=== PATIENT | male | born 1945 | race Caucasian/White ===

== ENCOUNTER → 2016-10-24 | Day surgery (SDC) | payer MEDICARE ==
[~2016-10-24] MED LIST: ASPIRIN CHEWABL81 MG GT; BACITRACIN15 GM TOP; DIGITEK125 MCG GT; LIQUACEL LIQUID30 ML GT; LOPRESSOR25 MG GT; PREVACID30 M1 GT; REGLAN10 MG/10 M GT; ROBITUSSIN100 MG/5 M GT; SYNTHROID75 MCG GT; [UNRECOGNIZED DRUG - OTHER] GT
[2016-10-24 07:21] LABS: CREATININE 0.9 mg/dL (0.7-1.2); POTASSIUM 5.3 mmol/L (3.5-5.1)
== END | disposition home or self-care (01) ==
LOC: FAS 06:38
PROVIDERS: Anesthesiology
DX: D12.6 Benign neoplasm of colon, unspecified (principal); K21.9 Gastro-esophageal reflux disease without esophagitis; I10 Essential (primary) hypertension; M19.90 Unspecified osteoarthritis, unspecified site; J30.9 Allergic rhinitis, unspecified; Z90.49 Acquired absence of other specified parts of digestive tract; Z87.891 Personal history of nicotine dependence; Z86.010 Personal history of colon polyps; Z79.82 Long term (current) use of aspirin; Z79.899 Other long term (current) drug therapy; Z98.890 Other specified postprocedural states
CPT/HCPCS: 36415; 80048; 88305; J2704

== ENCOUNTER → 2016-11-06 | Day surgery (SDC) | payer MEDICARE | END | disposition home or self-care (01) | LOC: FAS 06:14 | DX: C18.9 Malignant neoplasm of colon, unspecified (principal); K21.9 Gastro-esophageal reflux disease without esophagitis; I10 Essential (primary) hypertension; J30.9 Allergic rhinitis, unspecified; M19.90 Unspecified osteoarthritis, unspecified site; Z86.010 Personal history of colon polyps; Z87.891 Personal history of nicotine dependence; Z90.49 Acquired absence of other specified parts of digestive tract; Z79.82 Long term (current) use of aspirin; Z79.899 Other long term (current) drug therapy; Z98.890 Other specified postprocedural states | CPT/HCPCS: 88305; J2704 ==

== ENCOUNTER 2016-11-23 10:15 | Inpatient (IN) | payer MEDICARE, MEDICAID ==
[2016-11-22 10:28] LABS: HCT 50.7 % (42.0-52.0); MCH 27.4 pg (25.0-31.0); MCHC 33.5 g/dL (32.0-36.0); MCV 81.6 fL (78.0-100.0); MPV 9.4 fL (6.0-9.5); RBC 6.21 M/uL (4.70-6.00); RDW 14.4 % (11.5-14.0); WBC 5.7 K/uL (4.0-10.5)
[2016-11-22 10:44] LABS: ALBUMIN 4.7 g/dL (3.4-4.8); BILIRUBIN - TOTAL 1.2 mg/dL (0.1-1.0); CREATININE 0.7 mg/dL (0.7-1.2); GLOBULIN (CALCULATION) 2.9 g/dL (2.2-4.2); POTASSIUM 3.8 mmol/L (3.5-5.1); TOTAL PROTEIN 7.6 g/dL (6.4-8.3)
[~2016-11-23] VITALS: Ht 170 cm; Wt 80.3 kg
[2016-11-23 14:25] LABS: BILIRUBIN NEGATIVE (NEGATIVE); BLOOD TRACE-INTACT Ery/uL (NEGATIVE); CLARITY CLEAR (CLEAR); COLOR YELLOW (YELLOW); GLUCOSE (U) NORMAL (NORMAL); KETONE (U) NEGATIVE (NEGATIVE); LEUKOCYTES NEGATIVE Leu/uL (NEGATIVE); NITRITE NEGATIVE (NEGATIVE); PROTEIN NEGATIVE (NEGATIVE); UROBILINOGEN 0.2 mg/dL (0.2-1.0)
[2016-11-24 06:00] LABS: HCT 39.7 % (42.0-52.0); HGB 13.1 g/dl (13.2-18.0); MCH 27.4 pg (25.0-31.0); MCV 83.1 fL (78.0-100.0); MPV 9.9 fL (6.0-9.5); RBC 4.78 M/uL (4.70-6.00); RDW 14.3 % (11.5-14.0)
[2016-11-24 06:02] LABS: WBC 16.5 K/uL (4.0-10.5)
[2016-11-24 06:36] LABS: CREATININE 1.5 mg/dL (0.7-1.2); POTASSIUM 4.4 mmol/L (3.5-5.1)
[2016-11-24 15:33] LABS: CREATININE 1.1 mg/dL (0.7-1.2); MAGNESIUM 1.9 mg/dL (1.40-2.10); POTASSIUM 4.4 mmol/L (3.5-5.1)
[2016-11-25 04:51] LABS: CREATININE 2.3 mg/dL (0.7-1.2); POTASSIUM 4.9 mmol/L (3.5-5.1)
[2016-11-25 16:13] LABS: BASOPHIL 0 % (0-2); EOSINOPHIL 0 % (0-7); HCT 25.1 % (42.0-52.0); HGB 8.2 g/dl (13.2-18.0); LYMPHOCYTE 6.7 % (15-48); MCHC 32.7 g/dL (32.0-36.0); MCV 85.7 fL (78.0-100.0); MONOCYTE 15.4 % (0-12); MPV 9.6 fL (6.0-9.5); NEUTROPHIL 77.9 % (41-80); PLT 281 K/uL (150-400); RBC 2.93 M/uL (4.70-6.00); RDW 13.9 % (11.5-14.0); WBC 12.4 K/uL (4.0-10.5)
[2016-11-25 16:32] LABS: CREATININE 1.5 mg/dL (0.7-1.2); PHOSPHORUS 3.3 mg/dL (2.7-4.5); POTASSIUM 4.3 mmol/L (3.5-5.1)
[2016-11-25 18:39] LABS: URINE CREATININE 190.7 mg/dL (40-278)
[2016-11-25 18:46] LABS: RETICULOCYTE COUNT 2.7 % (1.0-2.0)
[2016-11-26 01:46] LABS: BILIRUBIN NEGATIVE (NEGATIVE); BLOOD 1+ Ery/uL (NEGATIVE); CLARITY CLEAR (CLEAR); COLOR YELLOW (YELLOW); GLUCOSE (U) NORMAL (NORMAL); KETONE (U) NEGATIVE (NEGATIVE); LEUKOCYTES NEGATIVE Leu/uL (NEGATIVE); NITRITE NEGATIVE (NEGATIVE); PROTEIN TRACE (LOW) mg/dL (NEGATIVE); UROBILINOGEN 0.2 mg/dL (0.2-1.0); pH 5.5 (5.0-9.0)
[2016-11-26 01:50] LABS: URINARY RBC RARE
[2016-11-26 04:41] LABS: BASOPHIL 0 % (0-2); EOSINOPHIL 0.2 % (0-7); LYMPHOCYTE 11.5 % (15-48); MCH 28.1 pg (25.0-31.0); MCHC 32.6 g/dL (32.0-36.0); MCV 86.1 fL (78.0-100.0); MONOCYTE 19.3 % (0-12); MPV 9.9 fL (6.0-9.5); PLT 218 K/uL (150-400); RBC 2.67 M/uL (4.70-6.00); RDW 13.9 % (11.5-14.0); WBC 6.4 K/uL (4.0-10.5)
[2016-11-26 04:45] LABS: HGB 7.5 g/dl (13.2-18.0)
[2016-11-26 04:59] LABS: IRON 18 ug/dL (44-196); IRON % SATURATION 7 %SAT (20-50); TIBC (TOTAL IRON + UIBC) 267 U/L (228-428); UIBC 249 ug/dL (112-346)
[2016-11-26 05:00] LABS: POTASSIUM 4.5 mmol/L (3.5-5.1)
[2016-11-26 05:19] LABS: FOLIC ACID (SERUM) 7.3 ng/mL (5.6-45.8)
[2016-11-26 09:14] LABS: BASOPHIL NO PRINT 0.1 % (0-2); EOSINOPHIL NO PRINT 0 % (0-7); HCT 25.7 % (42.0-52.0); HGB 8.2 g/dL (13.2-18.0); LYMPHOCYTE NO PRINT 12.9 % (15-48); MCH NO PRINT 27.8 pg (25.0-31.0); MCHC NO PRINT 31.9 g/dL (32.0-36.0); MCV NO PRINT 87.1 fL (78.0-100.0); MONOCYTE NO PRINT 23.8 % (0-12); MPV NO PRINT 9.9 fL (6.0-9.5); NEUTROPHIL NO PRINT 63.2 % (41-80); PLT NO PRINT 218 K/uL (150-400); RBC NO PRINT 2.95 M/uL (4.70-6.00); RDW NO PRINT 14.1 % (11.5-14.0); WBC NO PRINT 6.7 K/uL (4.0-10.5)
[2016-11-27 04:52] LABS: HCT 24.5 % (42.0-52.0); HGB 7.9 g/dl (13.2-18.0); MCH 27.8 pg (25.0-31.0); MCHC 32.2 g/dL (32.0-36.0); MCV 86.3 fL (78.0-100.0); MPV 9.7 fL (6.0-9.5); RBC 2.84 M/uL (4.70-6.00); WBC 5.2 K/uL (4.0-10.5)
[2016-11-27 05:13] LABS: CREATININE 0.8 mg/dL (0.7-1.2); POTASSIUM 4.3 mmol/L (3.5-5.1)
[2016-11-28 05:09] LABS: CREATININE 0.7 mg/dL (0.7-1.2)
[2016-11-28 05:40] LABS: HGB 8.3 g/dl (13.2-18.0); MCH 27.8 pg (25.0-31.0); MCHC 31.9 g/dL (32.0-36.0); MPV 9.6 fL (6.0-9.5); RBC 2.99 M/uL (4.70-6.00); RDW 14.1 % (11.5-14.0); WBC 7.6 K/uL (4.0-10.5)
[2016-11-30 04:57] LABS: HCT 27.4 % (42.0-52.0); HGB 8.8 g/dl (13.2-18.0); MCH 27.9 pg (25.0-31.0); MCHC 32.1 g/dL (32.0-36.0); MPV 9.6 fL (6.0-9.5); RBC 3.15 M/uL (4.70-6.00); RDW 15.4 % (11.5-14.0); WBC 10.3 K/uL (4.0-10.5)
[2016-11-30 05:18] LABS: ALBUMIN 2.8 g/dL (3.4-4.8); BILIRUBIN - TOTAL 2.1 mg/dL (0.1-1.0); CREATININE 0.8 mg/dL (0.7-1.2); GLOBULIN (CALCULATION) 2.4 g/dL (2.2-4.2); TOTAL PROTEIN 5.2 g/dL (6.4-8.3)
[2016-12-01 05:01] LABS: HCT 29.1 % (42.0-52.0); HGB 9.3 g/dl (13.2-18.0); MCH 27.5 pg (25.0-31.0); MCV 86.1 fL (78.0-100.0); MPV 9.5 fL (6.0-9.5); RBC 3.38 M/uL (4.70-6.00); RDW 15.9 % (11.5-14.0); WBC 14.4 K/uL (4.0-10.5)
[2016-12-01 05:11] LABS: ALBUMIN 3.1 g/dL (3.4-4.8); BILIRUBIN - DIRECT 0.9 mg/dL (0.0-0.2); BILIRUBIN - TOTAL 1.9 mg/dL (0.1-1.0); CREATININE 0.9 mg/dL (0.7-1.2); GLOBULIN (CALCULATION) 1.8 g/dL (2.2-4.2); POTASSIUM 4.2 mmol/L (3.5-5.1); TOTAL PROTEIN 4.9 g/dL (6.4-8.3)
--- NOTE | 2016-12-01 06:44 | NUR ---
0547 [facility] CALLED FOR INCREASED HEART RATE, O2 STAT DROPPED TO 83%. PATIENT PUT ON 2L/NC TO BRING O2 STATS ABOVE 91%. MD NOTIFIED AT 0554, HOUSE CALLED, STAT EKG ORDERED, MD ORDERED TO TRANSFER PATIENT TO ICU, CARDIZEM 5MG IV PUSH NOW, CBC, BMP AND COMP, CARDIAC MARKERS, PORTABLE CHEST X-RAY. REPORT CALLED TO SABINA.
[2016-12-01 06:55] LABS: HCT 32.4 % (42.0-52.0); HGB 10.1 g/dl (13.2-18.0); MCH 26.9 pg (25.0-31.0); MCHC 31.2 g/dL (32.0-36.0); MCV 86.2 fL (78.0-100.0); MPV 9.7 fL (6.0-9.5); RBC 3.76 M/uL (4.70-6.00); RDW 16.3 % (11.5-14.0); WBC 9.4 K/uL (4.0-10.5)
[2016-12-01 07:20] LABS: CKMB 2.92 ng/mL (0.97-4.94); MYOGLOBIN 114 ng/mL (26-65); TROPONIN T < 0.010 ng/mL
[2016-12-01 07:21] LABS: BILIRUBIN - TOTAL 2.1 mg/dL (0.1-1.0); CREATININE 0.9 mg/dL (0.7-1.2); GLOBULIN (CALCULATION) 2.7 g/dL (2.2-4.2); MAGNESIUM 2.01 mg/dL (1.40-2.10); POTASSIUM 3.4 mmol/L (3.5-5.1); TOTAL PROTEIN 5.7 g/dL (6.4-8.3)
[2016-12-01 07:24] LABS: PRO-BNP 768 pg/mL (0-125)
--- NOTE | 2016-12-01 07:44 | NUR ---
PT TRANSFERRED TO ICU BED AFTER [facility] ON [facility] WAS CALLED. REPORT RECIEVED PT WAS BROUGHT OVER. PT POST SIGMOID COLONECTOMY AND SUDDENLY BECAME TACHYCARDIC IN THE 140'S AND DESATED TO 83% PER REPORT. PT PLACED ON 2L NC. UPON ARRIVAL PT NOTED TO HAVE NO PAIN/SWEATING. ABDOMIN DISTENDED/FIRM/BRUISED. MD CALLED AND ORDERS RECIEVED ON CHART. PT O2 TITRATED TO 4L TO IMPROVE O2 SATS.
[2016-12-01 13:37] LABS: BILIRUBIN 1+ mg/dL (NEGATIVE); BLOOD NEGATIVE Ery/uL (NEGATIVE); CLARITY CLEAR (CLEAR); COLOR YELLOW (YELLOW); GLUCOSE (U) NORMAL (NORMAL); KETONE (U) 1+ (SMALL) mg/dL (NEGATIVE); LEUKOCYTES NEGATIVE Leu/uL (NEGATIVE); NITRITE NEGATIVE (NEGATIVE); PROTEIN TRACE (LOW) mg/dL (NEGATIVE)
[2016-12-01 18:40] LABS: HCT 28.9 % (42.0-52.0); HGB 9.2 g/dl (13.2-18.0); MCH 27.3 pg (25.0-31.0); MCHC 31.8 g/dL (32.0-36.0); MCV 85.8 fL (78.0-100.0); MPV 9.7 fL (6.0-9.5); RBC 3.37 M/uL (4.70-6.00); WBC 12.1 K/uL (4.0-10.5)
[2016-12-01 18:51] LABS: ALBUMIN 2.2 g/dL (3.4-4.8); BILIRUBIN - DIRECT 1.1 mg/dL (0.0-0.2); BILIRUBIN - TOTAL 1.7 mg/dL (0.1-1.0); CREATININE 1.1 mg/dL (0.7-1.2); POTASSIUM 3.7 mmol/L (3.5-5.1); TOTAL PROTEIN 4.2 g/dL (6.4-8.3)
[2016-12-02 08:02] LABS: HCT 29.4 % (42.0-52.0); HGB 9.2 g/dl (13.2-18.0); MCHC 31.3 g/dL (32.0-36.0); MCV 86.2 fL (78.0-100.0); MPV 9.8 fL (6.0-9.5); RBC 3.41 M/uL (4.70-6.00); RDW 16.3 % (11.5-14.0); WBC 19.3 K/uL (4.0-10.5)
[2016-12-02 08:15] LABS: ALBUMIN 2.1 g/dL (3.4-4.8); BILIRUBIN - TOTAL 1.2 mg/dL (0.1-1.0); CREATININE 1.3 mg/dL (0.7-1.2); GLOBULIN (CALCULATION) 1.9 g/dL (2.2-4.2); POTASSIUM 4.1 mmol/L (3.5-5.1)
[2016-12-03 05:52] LABS: HCT 23.4 % (42.0-52.0); HGB 7.6 g/dl (13.2-18.0); MCHC 32.5 g/dL (32.0-36.0); MPV 9.7 fL (6.0-9.5); RBC 2.82 M/uL (4.70-6.00); RDW 15.7 % (11.5-14.0); WBC 13.7 K/uL (4.0-10.5)
[2016-12-03 06:07] LABS: MAGNESIUM 2.1 mg/dL (1.40-2.10); PHOSPHORUS 1.7 mg/dL (2.7-4.5); POTASSIUM 3.4 mmol/L (3.5-5.1)
[2016-12-03 12:05] LABS: BASOPHIL NO PRINT 0.1 % (0-2); EOSINOPHIL NO PRINT 0.3 % (0-7); HCT 24.5 % (42.0-52.0); LYMPHOCYTE NO PRINT 4.9 % (15-48); MCH NO PRINT 27.5 pg (25.0-31.0); MCHC NO PRINT 32.7 g/dL (32.0-36.0); MCV NO PRINT 84.2 fL (78.0-100.0); MONOCYTE NO PRINT 4.7 % (0-12); MPV NO PRINT 9.3 fL (6.0-9.5); PLT NO PRINT 228 K/uL (150-400); RBC NO PRINT 2.91 M/uL (4.70-6.00); RDW NO PRINT 15.8 % (11.5-14.0); WBC NO PRINT 7.7 K/uL (4.0-10.5)
[2016-12-04 04:55] LABS: HCT 27.1 % (42.0-52.0); HGB 8.9 g/dl (13.2-18.0); MCH 27.4 pg (25.0-31.0); MCHC 32.8 g/dL (32.0-36.0); MCV 83.4 fL (78.0-100.0); MPV 9.7 fL (6.0-9.5); RBC 3.25 M/uL (4.70-6.00); RDW 15.7 % (11.5-14.0); WBC 8.6 K/uL (4.0-10.5)
[2016-12-04 05:17] LABS: ALBUMIN 1.8 g/dL (3.4-4.8); BILIRUBIN - DIRECT 0.4 mg/dL (0.0-0.2); CREATININE 0.8 mg/dL (0.7-1.2); GLOBULIN (CALCULATION) 2.3 g/dL (2.2-4.2); MAGNESIUM 2.13 mg/dL (1.40-2.10); PHOSPHORUS 2.2 mg/dL (2.7-4.5); POTASSIUM 3.8 mmol/L (3.5-5.1); TOTAL PROTEIN 4.1 g/dL (6.4-8.3)
[2016-12-05 05:03] LABS: BASOPHIL 0.3 % (0-2); EOSINOPHIL 0.5 % (0-7); HCT 28.5 % (42.0-52.0); HGB 9.6 g/dl (13.2-18.0); LYMPHOCYTE 8.6 % (15-48); MCH 27.9 pg (25.0-31.0); MCHC 33.7 g/dL (32.0-36.0); MCV 82.8 fL (78.0-100.0); MONOCYTE 7.7 % (0-12); MPV 10.4 fL (6.0-9.5); NEUTROPHIL 82.9 % (41-80); PLT 212 K/uL (150-400); RBC 3.44 M/uL (4.70-6.00); RDW 15.8 % (11.5-14.0); WBC 6.6 K/uL (4.0-10.5)
[2016-12-05 05:20] LABS: ALBUMIN 1.8 g/dL (3.4-4.8); BILIRUBIN - TOTAL 0.7 mg/dL (0.1-1.0); CREATININE 0.7 mg/dL (0.7-1.2); GLOBULIN (CALCULATION) 2.3 g/dL (2.2-4.2); MAGNESIUM 2.15 mg/dL (1.40-2.10); PHOSPHORUS 2.3 mg/dL (2.7-4.5); POTASSIUM 3.3 mmol/L (3.5-5.1); TOTAL PROTEIN 4.1 g/dL (6.4-8.3)
[2016-12-05 21:08] LABS: CREATININE 0.8 mg/dL (0.7-1.2); POTASSIUM 3.3 mmol/L (3.5-5.1)
[2016-12-06 03:48] LABS: BASOPHIL 0.5 % (0-2); EOSINOPHIL 0.7 % (0-7); HCT 33.4 % (42.0-52.0); HGB 11.3 g/dl (13.2-18.0); LYMPHOCYTE 6.6 % (15-48); MCHC 33.8 g/dL (32.0-36.0); MCV 82.9 fL (78.0-100.0); MONOCYTE 8.2 % (0-12); MPV 10.9 fL (6.0-9.5); PLT 242 K/uL (150-400); RBC 4.03 M/uL (4.70-6.00); RDW 15.4 % (11.5-14.0); WBC 7.4 K/uL (4.0-10.5)
[2016-12-06 03:58] LABS: INR 1.46 (0.9-1.2); PROTHROMBIN TIME 17.2 SECONDS (11.7-14.0); PTT 30.8 SECONDS (23.2-31.4)
[2016-12-06 04:10] LABS: BILIRUBIN - TOTAL 0.8 mg/dL (0.1-1.0); CREATININE 0.8 mg/dL (0.7-1.2); GLOBULIN (CALCULATION) 2.4 g/dL (2.2-4.2); MAGNESIUM 1.89 mg/dL (1.40-2.10); PHOSPHORUS 3.9 mg/dL (2.7-4.5); POTASSIUM 3.6 mmol/L (3.5-5.1); TOTAL PROTEIN 4.4 g/dL (6.4-8.3)
[2016-12-06 10:29] LABS: FT4 (FREE T4) 0.796 ng/dL (0.93-1.70); TSH (THYROID STIM HORMONE) 6.59 uIU/mL (0.270-4.200)
[2016-12-06 10:37] LABS: BILIRUBIN NEGATIVE (NEGATIVE); BLOOD TRACE-INTACT Ery/uL (NEGATIVE); CLARITY CLEAR (CLEAR); COLOR YELLOW (YELLOW); GLUCOSE (U) TRACE mg/dL (NORMAL); KETONE (U) NEGATIVE (NEGATIVE); LEUKOCYTES NEGATIVE Leu/uL (NEGATIVE); NITRITE NEGATIVE (NEGATIVE); PROTEIN NEGATIVE (NEGATIVE); UROBILINOGEN 0.2 mg/dL (0.2-1.0); pH 5.5 (5.0-9.0)
[2016-12-06 10:44] LABS: URINARY RBC RARE; URINARY WBC RARE
[2016-12-06 10:45] LABS: SQUAMOUS EPITHELIAL CELLS RARE
[2016-12-06 11:01] LABS: D-DIMER 8.48 ug/mLFEU (0.00-0.41)
[2016-12-06 17:10] LABS: CREATININE 0.8 mg/dL (0.7-1.2); POTASSIUM 3.5 mmol/L (3.5-5.1)
[2016-12-07 04:10] LABS: BASOPHIL 0.3 % (0-2); EOSINOPHIL 0.7 % (0-7); HCT 36.5 % (42.0-52.0); HGB 12.3 g/dl (13.2-18.0); LYMPHOCYTE 6.3 % (15-48); MCH 28.3 pg (25.0-31.0); MCHC 33.7 g/dL (32.0-36.0); MCV 84.1 fL (78.0-100.0); MONOCYTE 6.1 % (0-12); MPV 10.8 fL (6.0-9.5); NEUTROPHIL 86.6 % (41-80); PLT 333 K/uL (150-400); RBC 4.34 M/uL (4.70-6.00); RDW 16.1 % (11.5-14.0)
[2016-12-07 04:18] LABS: INR 1.59 (0.9-1.2); PROTHROMBIN TIME 18.4 SECONDS (11.7-14.0); PTT 33.4 SECONDS (23.2-31.4)
[2016-12-07 04:34] LABS: ALBUMIN 1.9 g/dL (3.4-4.8); CREATININE 0.8 mg/dL (0.7-1.2); MAGNESIUM 1.67 mg/dL (1.40-2.10); PHOSPHORUS 3.2 mg/dL (2.7-4.5); POTASSIUM 3.5 mmol/L (3.5-5.1); TOTAL PROTEIN 4.9 g/dL (6.4-8.3)
[2016-12-07 18:05] LABS: CREATININE 0.7 mg/dL (0.7-1.2); POTASSIUM 4.1 mmol/L (3.5-5.1)
[2016-12-08 04:39] LABS: INR 1.54 (0.9-1.2); PTT 34.3 SECONDS (23.2-31.4)
[2016-12-08 04:50] LABS: BILIRUBIN - TOTAL 1.3 mg/dL (0.1-1.0); CREATININE 0.8 mg/dL (0.7-1.2); GLOBULIN (CALCULATION) 3.2 g/dL (2.2-4.2); MAGNESIUM 1.86 mg/dL (1.40-2.10); PHOSPHORUS 2.7 mg/dL (2.7-4.5); TOTAL PROTEIN 5.2 g/dL (6.4-8.3)
[2016-12-08 08:07] LABS: BASOPHIL 0.2 % (0-2); EOSINOPHIL 0.3 % (0-7); HCT 35.4 % (42.0-52.0); HGB 11.5 g/dl (13.2-18.0); LYMPHOCYTE 4.7 % (15-48); MCHC 32.5 g/dL (32.0-36.0); MCV 86.1 fL (78.0-100.0); MONOCYTE 6.6 % (0-12); MPV 11.1 fL (6.0-9.5); NEUTROPHIL 88.2 % (41-80); PLT 377 K/uL (150-400); RBC 4.11 M/uL (4.70-6.00); RDW 16.1 % (11.5-14.0); WBC 11.6 K/uL (4.0-10.5)
[2016-12-08 19:35] LABS: CREATININE 0.8 mg/dL (0.7-1.2); POTASSIUM 3.8 mmol/L (3.5-5.1)
[2016-12-09 04:24] LABS: BASOPHIL 0.2 % (0-2); EOSINOPHIL 0.7 % (0-7); HCT 34.5 % (42.0-52.0); HGB 11.1 g/dl (13.2-18.0); LYMPHOCYTE 5.7 % (15-48); MCH 27.8 pg (25.0-31.0); MCHC 32.2 g/dL (32.0-36.0); MCV 86.5 fL (78.0-100.0); MONOCYTE 6.6 % (0-12); MPV 10.9 fL (6.0-9.5); NEUTROPHIL 86.8 % (41-80); PLT 432 K/uL (150-400); RBC 3.99 M/uL (4.70-6.00); RDW 16.2 % (11.5-14.0); WBC 11.2 K/uL (4.0-10.5)
[2016-12-09 04:38] LABS: BILIRUBIN - TOTAL 1.4 mg/dL (0.1-1.0); CREATININE 0.8 mg/dL (0.7-1.2); GLOBULIN (CALCULATION) 3.1 g/dL (2.2-4.2); MAGNESIUM 1.79 mg/dL (1.40-2.10); PHOSPHORUS 2.6 mg/dL (2.7-4.5); POTASSIUM 3.6 mmol/L (3.5-5.1); TOTAL PROTEIN 5.1 g/dL (6.4-8.3)
[2016-12-10 04:59] LABS: HCT 34.3 % (42.0-52.0); HGB 10.9 g/dl (13.2-18.0); MCH 27.9 pg (25.0-31.0); MCHC 31.8 g/dL (32.0-36.0); MCV 87.9 fL (78.0-100.0); MPV 10.8 fL (6.0-9.5); RBC 3.9 M/uL (4.70-6.00); RDW 16.2 % (11.5-14.0); WBC 9.3 K/uL (4.0-10.5)
[2016-12-10 05:16] LABS: ALBUMIN 1.7 g/dL (3.4-4.8); BILIRUBIN - TOTAL 1.4 mg/dL (0.1-1.0); CREATININE 0.7 mg/dL (0.7-1.2); GLOBULIN (CALCULATION) 3.2 g/dL (2.2-4.2); TOTAL PROTEIN 4.9 g/dL (6.4-8.3)
[2016-12-11 05:13] LABS: BASOPHIL 0.2 % (0-2); EOSINOPHIL 0.8 % (0-7); LYMPHOCYTE 7.1 % (15-48); MCHC 31.4 g/dL (32.0-36.0); MCV 89.1 fL (78.0-100.0); MONOCYTE 6.6 % (0-12); MPV 10.9 fL (6.0-9.5); NEUTROPHIL 85.3 % (41-80); PLT 459 K/uL (150-400); RBC 3.93 M/uL (4.70-6.00); RDW 16.6 % (11.5-14.0); WBC 8.9 K/uL (4.0-10.5)
[2016-12-11 05:29] LABS: ALBUMIN 2.1 g/dL (3.4-4.8); BILIRUBIN - TOTAL 1.2 mg/dL (0.1-1.0); CREATININE 0.8 mg/dL (0.7-1.2); GLOBULIN (CALCULATION) 2.5 g/dL (2.2-4.2); MAGNESIUM 2.04 mg/dL (1.40-2.10); POTASSIUM 3.9 mmol/L (3.5-5.1); TOTAL PROTEIN 4.6 g/dL (6.4-8.3)
[2016-12-11 05:35] LABS: INR 1.6 (0.9-1.2); PROTHROMBIN TIME 18.5 SECONDS (11.7-14.0)
--- NOTE | 2016-12-11 21:30 | NUR ---
MOUTH W/SMALL AMOUNT OF BLOOD OBSERVED. SUCTIONED MOUTH W/ORAL CARE GIVEN. WILL CONT TO MONITOR CLOSELY.
--- NOTE | 2016-12-11 22:45 | NUR ---
REPOSITIONED PT W/JULIA-CARE AND WOUND CARE PROVIDED. AFTER REPOSITIONING VENTILATOR ALARMED, WAGNER, RT AT BEDSIDE, 02 SATS DROPPED TO 60, WAGNER RT BAGGED UNTIL SATS 100%. MORPHINE 2MG IVP GIVEN FOR ABD PAIN. CONT TO MONITOR PT CLOSELY.
[2016-12-12 05:25] LABS: BASOPHIL 0.1 % (0-2); HCT 33.1 % (42.0-52.0); HGB 10.4 g/dl (13.2-18.0); LYMPHOCYTE 7.2 % (15-48); MCH 28.1 pg (25.0-31.0); MCHC 31.4 g/dL (32.0-36.0); MCV 89.5 fL (78.0-100.0); MONOCYTE 7.5 % (0-12); MPV 10.8 fL (6.0-9.5); NEUTROPHIL 84.2 % (41-80); PLT 446 K/uL (150-400); RDW 16.8 % (11.5-14.0)
[2016-12-12 05:44] LABS: ALBUMIN 1.9 g/dL (3.4-4.8); BILIRUBIN - TOTAL 1.2 mg/dL (0.1-1.0); CREATININE 0.7 mg/dL (0.7-1.2); GLOBULIN (CALCULATION) 3.2 g/dL (2.2-4.2); MAGNESIUM 2.12 mg/dL (1.40-2.10); PHOSPHORUS 3.3 mg/dL (2.7-4.5); POTASSIUM 4.3 mmol/L (3.5-5.1); TOTAL PROTEIN 5.1 g/dL (6.4-8.3)
[2016-12-13 04:54] LABS: BASOPHIL 0.6 % (0-2); EOSINOPHIL 1.5 % (0-7); HCT 33.2 % (42.0-52.0); HGB 10.1 g/dl (13.2-18.0); LYMPHOCYTE 5.7 % (15-48); MCH 27.8 pg (25.0-31.0); MCHC 30.4 g/dL (32.0-36.0); MCV 91.5 fL (78.0-100.0); MPV 10.7 fL (6.0-9.5); NEUTROPHIL 84.2 % (41-80); PLT 399 K/uL (150-400); RBC 3.63 M/uL (4.70-6.00); RDW 17.1 % (11.5-14.0); WBC 7.9 K/uL (4.0-10.5)
[2016-12-13 05:04] LABS: INR 1.59 (0.9-1.2); PROTHROMBIN TIME 18.4 SECONDS (11.7-14.0); PTT 34.6 SECONDS (23.2-31.4)
[2016-12-13 05:11] LABS: ALBUMIN 2.1 g/dL (3.4-4.8); BILIRUBIN - TOTAL 1.3 mg/dL (0.1-1.0); CREATININE 0.8 mg/dL (0.7-1.2); GLOBULIN (CALCULATION) 3.1 g/dL (2.2-4.2); MAGNESIUM 2.04 mg/dL (1.40-2.10); PHOSPHORUS 2.6 mg/dL (2.7-4.5); POTASSIUM 3.8 mmol/L (3.5-5.1); TOTAL PROTEIN 5.2 g/dL (6.4-8.3)
[2016-12-14 04:06] LABS: BASOPHIL 0.8 % (0-2); EOSINOPHIL 0.6 % (0-7); HCT 31.9 % (42.0-52.0); HGB 9.8 g/dl (13.2-18.0); LYMPHOCYTE 8.3 % (15-48); MCHC 30.7 g/dL (32.0-36.0); MCV 91.1 fL (78.0-100.0); MONOCYTE 9.5 % (0-12); MPV 10.5 fL (6.0-9.5); NEUTROPHIL 80.8 % (41-80); PLT 375 K/uL (150-400); RDW 17.3 % (11.5-14.0)
[2016-12-14 04:28] LABS: BILIRUBIN - TOTAL 1.4 mg/dL (0.1-1.0); CREATININE 0.8 mg/dL (0.7-1.2); GLOBULIN (CALCULATION) 2.4 g/dL (2.2-4.2); MAGNESIUM 2.03 mg/dL (1.40-2.10); PHOSPHORUS 2.9 mg/dL (2.7-4.5); POTASSIUM 4.1 mmol/L (3.5-5.1); TOTAL PROTEIN 4.4 g/dL (6.4-8.3)
[2016-12-14 04:47] LABS: WBC 7.1 K/uL (4.0-10.5)
[2016-12-15 04:22] LABS: BASOPHIL 1.4 % (0-2); EOSINOPHIL 0.6 % (0-7); HCT 31.6 % (42.0-52.0); HGB 9.6 g/dl (13.2-18.0); LYMPHOCYTE 10.4 % (15-48); MCHC 30.4 g/dL (32.0-36.0); MCV 92.1 fL (78.0-100.0); MONOCYTE 9.2 % (0-12); MPV 10.5 fL (6.0-9.5); NEUTROPHIL 78.4 % (41-80); PLT 365 K/uL (150-400); RBC 3.43 M/uL (4.70-6.00); RDW 17.5 % (11.5-14.0)
[2016-12-15 04:31] LABS: INR 1.51 (0.9-1.2); PROTHROMBIN TIME 17.7 SECONDS (11.7-14.0); PTT 34.6 SECONDS (23.2-31.4)
[2016-12-15 04:37] LABS: BILIRUBIN - TOTAL 1.3 mg/dL (0.1-1.0); CREATININE 0.7 mg/dL (0.7-1.2); MAGNESIUM 2.12 mg/dL (1.40-2.10)
[2016-12-16 04:22] LABS: BASOPHIL 2.1 % (0-2); EOSINOPHIL 0.1 % (0-7); HCT 34.7 % (42.0-52.0); HGB 10.7 g/dl (13.2-18.0); LYMPHOCYTE 13.3 % (15-48); MCH 27.8 pg (25.0-31.0); MCHC 30.8 g/dL (32.0-36.0); MCV 90.1 fL (78.0-100.0); MONOCYTE 6.6 % (0-12); MPV 11.3 fL (6.0-9.5); NEUTROPHIL 77.9 % (41-80); PLT 505 K/uL (150-400); RBC 3.85 M/uL (4.70-6.00)
[2016-12-16 04:26] LABS: WBC 13.7 K/uL (4.0-10.5)
[2016-12-16 04:38] LABS: ALBUMIN 1.9 g/dL (3.4-4.8); BILIRUBIN - TOTAL 1.2 mg/dL (0.1-1.0); CREATININE 0.7 mg/dL (0.7-1.2); GLOBULIN (CALCULATION) 2.3 g/dL (2.2-4.2); MAGNESIUM 2.13 mg/dL (1.40-2.10); PHOSPHORUS 3.2 mg/dL (2.7-4.5); POTASSIUM 5.1 mmol/L (3.5-5.1); TOTAL PROTEIN 4.2 g/dL (6.4-8.3)
[2016-12-17 04:18] LABS: HCT 29.1 % (42.0-52.0); HGB 8.7 g/dl (13.2-18.0); MCH 27.4 pg (25.0-31.0); MCHC 29.9 g/dL (32.0-36.0); MCV 91.8 fL (78.0-100.0); MPV 11.7 fL (6.0-9.5); RBC 3.17 M/uL (4.70-6.00); RDW 18.3 % (11.5-14.0); WBC 10.7 K/uL (4.0-10.5)
[2016-12-17 04:33] LABS: CREATININE 0.7 mg/dL (0.7-1.2); POTASSIUM 4.5 mmol/L (3.5-5.1)
[2016-12-17 16:57] LABS: HCT 28.7 % (42.0-52.0); HGB 8.6 g/dl (13.2-18.0); MCH 27.7 pg (25.0-31.0); MCV 92.6 fL (78.0-100.0); MPV 11.5 fL (6.0-9.5); RBC 3.1 M/uL (4.70-6.00); RDW 18.3 % (11.5-14.0); WBC 9.9 K/uL (4.0-10.5)
[2016-12-18 04:20] LABS: BASOPHIL 1.8 % (0-2); EOSINOPHIL 0.5 % (0-7); HCT 26.4 % (42.0-52.0); LYMPHOCYTE 11.1 % (15-48); MCH 27.9 pg (25.0-31.0); MCHC 30.3 g/dL (32.0-36.0); MONOCYTE 6.2 % (0-12); MPV 11.9 fL (6.0-9.5); NEUTROPHIL 80.4 % (41-80); PLT 343 K/uL (150-400); RBC 2.87 M/uL (4.70-6.00); RDW 18.4 % (11.5-14.0)
[2016-12-18 04:39] LABS: CREATININE 0.7 mg/dL (0.7-1.2); MAGNESIUM 2.28 mg/dL (1.40-2.10); POTASSIUM 4.5 mmol/L (3.5-5.1)
[2016-12-19 04:08] LABS: BASOPHIL 1.8 % (0-2); EOSINOPHIL 0.9 % (0-7); HCT 27.9 % (42.0-52.0); HGB 8.4 g/dl (13.2-18.0); LYMPHOCYTE 9.6 % (15-48); MCH 27.9 pg (25.0-31.0); MCHC 30.1 g/dL (32.0-36.0); MCV 92.7 fL (78.0-100.0); MONOCYTE 4.9 % (0-12); MPV 12.1 fL (6.0-9.5); NEUTROPHIL 82.8 % (41-80); PLT 388 K/uL (150-400); RBC 3.01 M/uL (4.70-6.00); RDW 18.7 % (11.5-14.0); RETICULOCYTE COUNT 4.7 % (1.0-2.0); WBC 13.6 K/uL (4.0-10.5)
[2016-12-19 04:29] LABS: ALBUMIN 1.8 g/dL (3.4-4.8); BILIRUBIN - TOTAL 1.9 mg/dL (0.1-1.0); CREATININE 0.6 mg/dL (0.7-1.2); IRON 21 ug/dL (44-196); IRON % SATURATION 20 %SAT (20-50); MAGNESIUM 2.22 mg/dL (1.40-2.10); PHOSPHORUS 3.2 mg/dL (2.7-4.5); POTASSIUM 4.4 mmol/L (3.5-5.1); TIBC (TOTAL IRON + UIBC) 104 U/L (228-428); TOTAL PROTEIN 4.8 g/dL (6.4-8.3); UIBC 83 ug/dL (112-346)
[2016-12-19 04:45] LABS: FOLIC ACID (SERUM) 7.2 ng/mL (5.6-45.8)
[2016-12-20 03:50] LABS: BASOPHIL 1.5 % (0-2); EOSINOPHIL 0.7 % (0-7); HCT 29.1 % (42.0-52.0); HGB 8.6 g/dl (13.2-18.0); LYMPHOCYTE 10.7 % (15-48); MCH 27.5 pg (25.0-31.0); MCHC 29.6 g/dL (32.0-36.0); MPV 11.8 fL (6.0-9.5); NEUTROPHIL 82.1 % (41-80); PLT 421 K/uL (150-400); RBC 3.13 M/uL (4.70-6.00); RDW 19.4 % (11.5-14.0); WBC 13.6 K/uL (4.0-10.5)
[2016-12-20 04:14] LABS: BILIRUBIN - TOTAL 1.9 mg/dL (0.1-1.0); CREATININE 0.5 mg/dL (0.7-1.2); GLOBULIN (CALCULATION) 2.5 g/dL (2.2-4.2); MAGNESIUM 2.25 mg/dL (1.40-2.10); PHOSPHORUS 3.3 mg/dL (2.7-4.5); POTASSIUM 4.5 mmol/L (3.5-5.1); TOTAL PROTEIN 4.5 g/dL (6.4-8.3)
[2016-12-21 04:10] LABS: BASOPHIL 0.4 % (0-2); EOSINOPHIL 0.7 % (0-7); HCT 28.6 % (42.0-52.0); HGB 8.4 g/dl (13.2-18.0); LYMPHOCYTE 9.2 % (15-48); MCH 28.2 pg (25.0-31.0); MCHC 29.4 g/dL (32.0-36.0); MONOCYTE 5.4 % (0-12); MPV 12.2 fL (6.0-9.5); NEUTROPHIL 84.3 % (41-80); PLT 460 K/uL (150-400); RBC 2.98 M/uL (4.70-6.00); RDW 20.4 % (11.5-14.0)
[2016-12-21 04:12] LABS: WBC 15.3 K/uL (4.0-10.5)
[2016-12-21 04:30] LABS: ALBUMIN 1.9 g/dL (3.4-4.8); BILIRUBIN - TOTAL 1.9 mg/dL (0.1-1.0); CREATININE 0.6 mg/dL (0.7-1.2); MAGNESIUM 2.2 mg/dL (1.40-2.10); PHOSPHORUS 3.4 mg/dL (2.7-4.5); POTASSIUM 4.2 mmol/L (3.5-5.1); TOTAL PROTEIN 4.9 g/dL (6.4-8.3)
[2016-12-22 03:50] LABS: BASOPHIL 0.7 % (0-2); EOSINOPHIL 0.5 % (0-7); HCT 28.2 % (42.0-52.0); HGB 8.3 g/dl (13.2-18.0); LYMPHOCYTE 10.6 % (15-48); MCHC 29.4 g/dL (32.0-36.0); MCV 95.3 fL (78.0-100.0); MONOCYTE 5.4 % (0-12); MPV 11.8 fL (6.0-9.5); NEUTROPHIL 82.8 % (41-80); PLT 442 K/uL (150-400); RBC 2.96 M/uL (4.70-6.00); RDW 21.7 % (11.5-14.0); WBC 12.8 K/uL (4.0-10.5)
[2016-12-22 04:00] LABS: INR 1.48 (0.9-1.2); PROTHROMBIN TIME 17.4 SECONDS (11.7-14.0); PTT 34.3 SECONDS (23.2-31.4)
[2016-12-22 04:10] LABS: BILIRUBIN - TOTAL 1.9 mg/dL (0.1-1.0); CREATININE 0.6 mg/dL (0.7-1.2); GLOBULIN (CALCULATION) 2.9 g/dL (2.2-4.2); MAGNESIUM 2.19 mg/dL (1.40-2.10); PHOSPHORUS 3.6 mg/dL (2.7-4.5); POTASSIUM 3.9 mmol/L (3.5-5.1); TOTAL PROTEIN 4.9 g/dL (6.4-8.3)
[2016-12-22 04:24] LABS: BAND 5 % (0-10); LYMPHOCYTE(M) 10 % (15-48); MONOCYTE(M) 3 % (0-12); NEUTROPHILS(M) 82 % (41-80); NRBC 2; TOTAL CELL COUNT 100
[2016-12-22 04:25] LABS: POLYCHROMASIA MODERATE
[2016-12-22 04:27] LABS: ANISOCYTOSIS MODERATE; PLATELET ESTIMATE INCREASED; PLATELET MORPHOLOGY GIANT; SCHISTOCYTES 1+
--- NOTE | 2016-12-22 18:21 | NUR ---
12/21/16 1900- PATIENT HAS BEEN IN AFIB SINCE 1630 TODAY WITH CONTROLLED HR IN 90'S. SUDDEN HR INCREASE TO 140'S-160'S, BP DECREASE TO 86/42. O2 SAT 96%. PATIENT HAS BEENON 40% VENTURI MASK SINCE 143O. INCREASED TACHYPNEA AND RESP DISTRESS AT THIS TIME. PUT BACK ON VENTILATOR WITH PREVIOUS SETTINGS RESUMED PER MD ORDER. WITHIN 5 MINUTES, PATIENT CONVERTED TO NSR/ST IN LOW 100'S, BP 107/45
[2016-12-23 03:39] LABS: BASOPHIL 0.3 % (0-2); EOSINOPHIL 0.5 % (0-7); HGB 8.4 g/dl (13.2-18.0); LYMPHOCYTE 7.8 % (15-48); MCH 28.8 pg (25.0-31.0); MCV 95.9 fL (78.0-100.0); MONOCYTE 3.5 % (0-12); NEUTROPHIL 87.9 % (41-80); PLT 460 K/uL (150-400); RBC 2.92 M/uL (4.70-6.00); RDW 22.9 % (11.5-14.0)
[2016-12-23 04:08] LABS: BILIRUBIN - TOTAL 2.2 mg/dL (0.1-1.0); CREATININE 0.6 mg/dL (0.7-1.2); GLOBULIN (CALCULATION) 2.2 g/dL (2.2-4.2); POTASSIUM 3.5 mmol/L (3.5-5.1); TOTAL PROTEIN 4.2 g/dL (6.4-8.3)
[2016-12-24 04:41] LABS: BASOPHIL 0.2 % (0-2); EOSINOPHIL 0.6 % (0-7); HCT 29.3 % (42.0-52.0); HGB 8.9 g/dl (13.2-18.0); LYMPHOCYTE 6.7 % (15-48); MCH 28.9 pg (25.0-31.0); MCHC 30.4 g/dL (32.0-36.0); MCV 95.1 fL (78.0-100.0); MONOCYTE 4.3 % (0-12); MPV 12.1 fL (6.0-9.5); NEUTROPHIL 88.2 % (41-80); PLT 414 K/uL (150-400); RBC 3.08 M/uL (4.70-6.00); RDW 23.9 % (11.5-14.0)
[2016-12-24 04:45] LABS: WBC 14.5 K/uL (4.0-10.5)
[2016-12-24 05:02] LABS: BILIRUBIN - TOTAL 2.2 mg/dL (0.1-1.0); CREATININE 0.6 mg/dL (0.7-1.2); GLOBULIN (CALCULATION) 2.5 g/dL (2.2-4.2); MAGNESIUM 2.04 mg/dL (1.40-2.10); PHOSPHORUS 4.4 mg/dL (2.7-4.5); POTASSIUM 3.4 mmol/L (3.5-5.1); TOTAL PROTEIN 4.5 g/dL (6.4-8.3)
[2016-12-25 05:18] LABS: BASOPHIL 0.1 % (0-2); EOSINOPHIL 0.7 % (0-7); HCT 29.8 % (42.0-52.0); HGB 8.9 g/dl (13.2-18.0); LYMPHOCYTE 4.7 % (15-48); MCH 28.6 pg (25.0-31.0); MCHC 29.9 g/dL (32.0-36.0); MCV 95.8 fL (78.0-100.0); MONOCYTE 3.7 % (0-12); MPV 11.9 fL (6.0-9.5); NEUTROPHIL 90.8 % (41-80); PLT 441 K/uL (150-400); RBC 3.11 M/uL (4.70-6.00); RDW 24.4 % (11.5-14.0); WBC 16.6 K/uL (4.0-10.5)
[2016-12-25 05:33] LABS: ALBUMIN 1.8 g/dL (3.4-4.8); CREATININE 0.5 mg/dL (0.7-1.2); GLOBULIN (CALCULATION) 2.5 g/dL (2.2-4.2); MAGNESIUM 1.94 mg/dL (1.40-2.10); PHOSPHORUS 3.6 mg/dL (2.7-4.5); POTASSIUM 3.3 mmol/L (3.5-5.1); TOTAL PROTEIN 4.3 g/dL (6.4-8.3)
[2016-12-25 09:06] LABS: INR 1.41 (0.9-1.2); PROTHROMBIN TIME 16.8 SECONDS (11.7-14.0); PTT 34.9 SECONDS (23.2-31.4)
[2016-12-26 04:50] LABS: HCT 29.3 % (42.0-52.0); HGB 8.7 g/dl (13.2-18.0); MCH 28.5 pg (25.0-31.0); MCHC 29.7 g/dL (32.0-36.0); MCV 96.1 fL (78.0-100.0); MPV 11.8 fL (6.0-9.5); RBC 3.05 M/uL (4.70-6.00); RDW 23.7 % (11.5-14.0); WBC 9.5 K/uL (4.0-10.5)
[2016-12-26 05:06] LABS: CREATININE 0.5 mg/dL (0.7-1.2); POTASSIUM 3.5 mmol/L (3.5-5.1)
[2016-12-27 04:11] LABS: HCT 31.4 % (42.0-52.0); HGB 9.3 g/dl (13.2-18.0); MCH 28.4 pg (25.0-31.0); MCHC 29.6 g/dL (32.0-36.0); MPV 11.3 fL (6.0-9.5); RBC 3.27 M/uL (4.70-6.00); RDW 23.4 % (11.5-14.0); WBC 11.9 K/uL (4.0-10.5)
[2016-12-27 04:21] LABS: INR 1.38 (0.9-1.2); PROTHROMBIN TIME 16.5 SECONDS (11.7-14.0)
[2016-12-27 04:28] LABS: ALBUMIN 2.2 g/dL (3.4-4.8); BILIRUBIN - TOTAL 2.2 mg/dL (0.1-1.0); CREATININE 0.5 mg/dL (0.7-1.2); GLOBULIN (CALCULATION) 2.5 g/dL (2.2-4.2); POTASSIUM 3.4 mmol/L (3.5-5.1); TOTAL PROTEIN 4.7 g/dL (6.4-8.3)
--- NOTE | 2016-12-27 13:23 | NUR ---
TRACHE PRESSURE CHECKED WITH PRESSURE GAUGE FROM RT. 5 ML AIR INSERTED WITH SYRING. PT SUCTIONED VIA TRACHE. 1 TSP JELLO OFFERED. PT COUGHED UP ORANGE COLORED JELLO FROM TRACHE. SUCTION PROVIDED. PT ATE 2 SMALL ICE CHIPS. REFUSED ANY MORE PO INTAKE.
[2016-12-28 04:27] LABS: HCT 30.1 % (42.0-52.0); MCH 28.8 pg (25.0-31.0); MCHC 29.9 g/dL (32.0-36.0); MCV 96.5 fL (78.0-100.0); RBC 3.12 M/uL (4.70-6.00); RDW 23.1 % (11.5-14.0); WBC 8.3 K/uL (4.0-10.5)
[2016-12-28 04:46] LABS: ALBUMIN 2.1 g/dL (3.4-4.8); BILIRUBIN - TOTAL 1.6 mg/dL (0.1-1.0); CREATININE 0.4 mg/dL (0.7-1.2); GLOBULIN (CALCULATION) 2.9 g/dL (2.2-4.2); POTASSIUM 3.2 mmol/L (3.5-5.1)
[2016-12-29 04:13] LABS: HCT 31.1 % (42.0-52.0); HGB 9.3 g/dl (13.2-18.0); MCH 29.1 pg (25.0-31.0); MCHC 29.9 g/dL (32.0-36.0); MCV 97.2 fL (78.0-100.0); MPV 10.9 fL (6.0-9.5); RBC 3.2 M/uL (4.70-6.00); RDW 23.1 % (11.5-14.0); WBC 9.9 K/uL (4.0-10.5)
[2016-12-29 04:15] LABS: INR 1.36 (0.9-1.2); PROTHROMBIN TIME 16.3 SECONDS (11.7-14.0); PTT 35.3 SECONDS (23.2-31.4)
[2016-12-29 04:25] LABS: ALBUMIN 2.2 g/dL (3.4-4.8); BILIRUBIN - TOTAL 1.5 mg/dL (0.1-1.0); CREATININE 0.4 mg/dL (0.7-1.2); GLOBULIN (CALCULATION) 2.9 g/dL (2.2-4.2); POTASSIUM 3.3 mmol/L (3.5-5.1); TOTAL PROTEIN 5.1 g/dL (6.4-8.3)
[2016-12-30 04:06] LABS: HCT 29.8 % (42.0-52.0); HGB 8.9 g/dl (13.2-18.0); MCH 29.4 pg (25.0-31.0); MCHC 29.9 g/dL (32.0-36.0); MCV 98.3 fL (78.0-100.0); MPV 10.8 fL (6.0-9.5); RBC 3.03 M/uL (4.70-6.00); RDW 23.3 % (11.5-14.0); WBC 8.5 K/uL (4.0-10.5)
[2016-12-30 04:36] LABS: CREATININE 0.4 mg/dL (0.7-1.2)
[2016-12-31 03:52] LABS: HCT 30.4 % (42.0-52.0); HGB 9.1 g/dl (13.2-18.0); MCH 29.6 pg (25.0-31.0); MCHC 29.9 g/dL (32.0-36.0); MPV 10.6 fL (6.0-9.5); RBC 3.07 M/uL (4.70-6.00); RDW 23.4 % (11.5-14.0); WBC 9.8 K/uL (4.0-10.5)
[2016-12-31 04:13] LABS: CREATININE 0.4 mg/dL (0.7-1.2); MAGNESIUM 1.96 mg/dL (1.40-2.10); POTASSIUM 3.8 mmol/L (3.5-5.1)
[2017-01-01 04:15] LABS: INR 1.33 (0.9-1.2); PTT 49.3 SECONDS (23.2-31.4)
[2017-01-01 04:21] LABS: ALBUMIN 2.4 g/dL (3.4-4.8); BILIRUBIN - TOTAL 1.1 mg/dL (0.1-1.0); CREATININE 0.4 mg/dL (0.7-1.2); GLOBULIN (CALCULATION) 2.8 g/dL (2.2-4.2); MAGNESIUM 2.01 mg/dL (1.40-2.10); TOTAL PROTEIN 5.2 g/dL (6.4-8.3)
[2017-01-03 05:29] LABS: CREATININE 0.4 mg/dL (0.7-1.2)
[2017-01-03 09:05] LABS: BASOPHIL 0.2 % (0-2); EOSINOPHIL 0.2 % (0-7); HCT 31.4 % (42.0-52.0); HGB 9.4 g/dl (13.2-18.0); LYMPHOCYTE 8.8 % (15-48); MCH 30.2 pg (25.0-31.0); MCHC 29.9 g/dL (32.0-36.0); MONOCYTE 8.7 % (0-12); MPV 10.4 fL (6.0-9.5); NEUTROPHIL 82.1 % (41-80); PLT 234 K/uL (150-400); RBC 3.11 M/uL (4.70-6.00); RDW 24.4 % (11.5-14.0); WBC 9.5 K/uL (4.0-10.5)
[2017-01-03 09:21] LABS: ALBUMIN 2.5 g/dL (3.4-4.8); BILIRUBIN - TOTAL 1.1 mg/dL (0.1-1.0); CREATININE 0.4 mg/dL (0.7-1.2); GLOBULIN (CALCULATION) 2.9 g/dL (2.2-4.2); MAGNESIUM 2.03 mg/dL (1.40-2.10); PHOSPHORUS 4.1 mg/dL (2.7-4.5); POTASSIUM 3.9 mmol/L (3.5-5.1); TOTAL PROTEIN 5.4 g/dL (6.4-8.3)
--- NOTE | 2017-01-04 19:20 | NUR ---
1830: CALLED TO PT ROOM BY PT DAUGHTER, PT HAD PULLED OUT DOBHOFF TUBE. DR. CAMARA MADE AWARE. NEW ORDER RECEIVED TO PLACE DOBHOFF AND OBTAIN KUB TO CHECK PLACEMENT AFTERWARDS. FAMILY AT BEDSIDE. DR. CAMARA STATED IT WAS FINE TO WAIT UNTIL FAMILY LEFT TO TRY DOBHOFF PLACEMENT. WILL AWAIT FOR FAMILY TO LEAVE TO TRY, TASK PASSED ON TO [employer] [facility] PAZ AT SHIFT CHANGE AT 1900.
[2017-01-05 03:53] LABS: BASOPHIL 0.1 % (0-2); EOSINOPHIL 0 % (0-7); HCT 31.5 % (42.0-52.0); HGB 9.2 g/dl (13.2-18.0); LYMPHOCYTE 7.4 % (15-48); MCH 29.3 pg (25.0-31.0); MCHC 29.2 g/dL (32.0-36.0); MCV 100.3 fL (78.0-100.0); MONOCYTE 8.9 % (0-12); MPV 9.7 fL (6.0-9.5); NEUTROPHIL 83.6 % (41-80); PLT 256 K/uL (150-400); RBC 3.14 M/uL (4.70-6.00); RDW 22.4 % (11.5-14.0); WBC 8.9 K/uL (4.0-10.5)
[2017-01-05 04:08] LABS: INR 1.35 (0.9-1.2); PROTHROMBIN TIME 16.2 SECONDS (11.7-14.0); PTT 36.8 SECONDS (23.2-31.4)
[2017-01-05 04:24] LABS: ALBUMIN 2.6 g/dL (3.4-4.8); CREATININE 0.4 mg/dL (0.7-1.2); GLOBULIN (CALCULATION) 2.9 g/dL (2.2-4.2); MAGNESIUM 2.18 mg/dL (1.40-2.10); PHOSPHORUS 3.8 mg/dL (2.7-4.5); POTASSIUM 4.2 mmol/L (3.5-5.1); TOTAL PROTEIN 5.5 g/dL (6.4-8.3)
[2017-01-05 06:46] LABS: BILIRUBIN NEGATIVE (NEGATIVE); BLOOD 3+ Ery/uL (NEGATIVE); CLARITY CLEAR (CLEAR); COLOR YELLOW (YELLOW); GLUCOSE (U) NORMAL (NORMAL); KETONE (U) NEGATIVE (NEGATIVE); LEUKOCYTES NEGATIVE Leu/uL (NEGATIVE); NITRITE NEGATIVE (NEGATIVE); PROTEIN 1+ mg/dL (NEGATIVE); SPECIFIC GRAVITY 1.025 (1.001-1.030); UROBILINOGEN 0.2 mg/dL (0.2-1.0); pH 5.5 (5.0-9.0)
[2017-01-05 06:52] LABS: BACTERIA TRACE; MUCOUS MODERATE; SQUAMOUS EPITHELIAL CELLS RARE; URINARY RBC 20-50; URINARY WBC RARE
[2017-01-05 07:35] LABS: LACTIC ACID 1.7 mmol/L (0.5-2.2)
[2017-01-05 11:15] LABS: CLARITY (FLUID) CLEAR; COLOR (FLUID) YELLOW; RBC (FLUID) 850 u/L; WBC (FLUID) 322 u/L
[2017-01-05 12:25] LABS: LYMPHOCYTES (FLUID) 20 %; MONOCYTES (FLUID) 48 %
[2017-01-05 12:26] LABS: NEUTROPHILS (FLUID) 32 %
[2017-01-07 04:11] LABS: BASOPHIL 0 % (0-2); EOSINOPHIL 0.3 % (0-7); HCT 33.8 % (42.0-52.0); LYMPHOCYTE 7.9 % (15-48); MCH 29.4 pg (25.0-31.0); MCHC 29.6 g/dL (32.0-36.0); MCV 99.4 fL (78.0-100.0); MONOCYTE 10.5 % (0-12); MPV 10.3 fL (6.0-9.5); NEUTROPHIL 81.3 % (41-80); PLT 284 K/uL (150-400); RDW 20.8 % (11.5-14.0); WBC 6.2 K/uL (4.0-10.5)
[2017-01-07 04:21] LABS: ALBUMIN 2.8 g/dL (3.4-4.8); BILIRUBIN - TOTAL 1.2 mg/dL (0.1-1.0); CREATININE 0.4 mg/dL (0.7-1.2); GLOBULIN (CALCULATION) 2.2 g/dL (2.2-4.2); MAGNESIUM 1.83 mg/dL (1.40-2.10); PHOSPHORUS 4.1 mg/dL (2.7-4.5); POTASSIUM 4.1 mmol/L (3.5-5.1)
[2017-01-07 08:35] LABS: IRON 36 ug/dL (44-196); IRON % SATURATION 17 %SAT (20-50); TIBC (TOTAL IRON + UIBC) 210 U/L (228-428); UIBC 174 ug/dL (112-346)
[2017-01-08 03:57] LABS: BASOPHIL 0.1 % (0-2); EOSINOPHIL 1.2 % (0-7); HCT 34.9 % (42.0-52.0); HGB 10.5 g/dl (13.2-18.0); MCH 29.7 pg (25.0-31.0); MCHC 30.1 g/dL (32.0-36.0); MCV 98.9 fL (78.0-100.0); MONOCYTE 10.8 % (0-12); MPV 10.2 fL (6.0-9.5); NEUTROPHIL 79.9 % (41-80); PLT 313 K/uL (150-400); RBC 3.53 M/uL (4.70-6.00); RDW 20.5 % (11.5-14.0); WBC 7.5 K/uL (4.0-10.5)
[2017-01-08 04:17] LABS: ALBUMIN 2.8 g/dL (3.4-4.8); BILIRUBIN - TOTAL 1.1 mg/dL (0.1-1.0); CREATININE 0.4 mg/dL (0.7-1.2); GLOBULIN (CALCULATION) 2.3 g/dL (2.2-4.2); MAGNESIUM 1.78 mg/dL (1.40-2.10); PHOSPHORUS 3.6 mg/dL (2.7-4.5); POTASSIUM 4.2 mmol/L (3.5-5.1); TOTAL PROTEIN 5.1 g/dL (6.4-8.3)
[2017-01-08 05:04] LABS: INR 1.39 (0.9-1.2); PROTHROMBIN TIME 16.6 SECONDS (11.7-14.0); PTT 35.7 SECONDS (23.2-31.4)
[2017-01-09 04:17] LABS: HCT 36.5 % (42.0-52.0); HGB 10.8 g/dl (13.2-18.0); MCH 29.1 pg (25.0-31.0); MCHC 29.6 g/dL (32.0-36.0); MCV 98.4 fL (78.0-100.0); MPV 9.8 fL (6.0-9.5); RBC 3.71 M/uL (4.70-6.00); RDW 19.7 % (11.5-14.0)
[2017-01-09 04:40] LABS: CREATININE 0.4 mg/dL (0.7-1.2); POTASSIUM 4.4 mmol/L (3.5-5.1)
--- NOTE | 2017-01-09 19:51 | NUR ---
1919: DR. CLARK AND ALYCE AT PT BEDSIDE TO PERFORM BRONCHOSCOPY. TIMEOUT PERFORMED PRIOR TO PROCEDURE AT 1919. PROCEDURE CONCLUDED AT 1939. PT TOLERATED WELL. SEE VITAL SIGN GRAPHICS FOR VITALS DURING PROCEDURE. PT IN WAITING ROOM DURING PROCEDURE.
[2017-01-10 04:19] LABS: HCT 32.8 % (42.0-52.0); HGB 9.7 g/dl (13.2-18.0); MCH 29.3 pg (25.0-31.0); MCHC 29.6 g/dL (32.0-36.0); MCV 99.1 fL (78.0-100.0); MPV 10.2 fL (6.0-9.5); RBC 3.31 M/uL (4.70-6.00); RDW 18.9 % (11.5-14.0); WBC 7.2 K/uL (4.0-10.5)
[2017-01-10 04:33] LABS: CREATININE 0.4 mg/dL (0.7-1.2); POTASSIUM 4.4 mmol/L (3.5-5.1)
[2017-01-11 02:51] LABS: HCT 32.8 % (42.0-52.0); HGB 9.8 g/dl (13.2-18.0); MCH 29.1 pg (25.0-31.0); MCHC 29.9 g/dL (32.0-36.0); MCV 97.3 fL (78.0-100.0); MPV 10.2 fL (6.0-9.5); RBC 3.37 M/uL (4.70-6.00); RDW 19.2 % (11.5-14.0)
[2017-01-11 03:12] LABS: ALBUMIN 2.3 g/dL (3.4-4.8); CREATININE 0.4 mg/dL (0.7-1.2); GLOBULIN (CALCULATION) 2.6 g/dL (2.2-4.2); POTASSIUM 4.1 mmol/L (3.5-5.1); TOTAL PROTEIN 4.9 g/dL (6.4-8.3)
[2017-01-12 03:54] LABS: INR 1.32 (0.9-1.2); PROTHROMBIN TIME 15.9 SECONDS (11.7-14.0)
[2017-01-12 04:07] LABS: ALBUMIN 2.3 g/dL (3.4-4.8); BILIRUBIN - TOTAL 0.8 mg/dL (0.1-1.0); CREATININE 0.4 mg/dL (0.7-1.2); GLOBULIN (CALCULATION) 2.4 g/dL (2.2-4.2); MAGNESIUM 1.6 mg/dL (1.40-2.10); POTASSIUM 3.8 mmol/L (3.5-5.1); TOTAL PROTEIN 4.7 g/dL (6.4-8.3)
[2017-01-13 04:32] LABS: HGB 9.8 g/dl (13.2-18.0); MCH 29.1 pg (25.0-31.0); MCHC 30.6 g/dL (32.0-36.0); MPV 9.9 fL (6.0-9.5); RBC 3.37 M/uL (4.70-6.00); RDW 18.8 % (11.5-14.0); WBC 5.1 K/uL (4.0-10.5)
[2017-01-13 04:51] LABS: CREATININE 0.4 mg/dL (0.7-1.2)
[2017-01-14 05:43] LABS: HCT 32.5 % (42.0-52.0); HGB 10.1 g/dl (13.2-18.0); MCH 29.1 pg (25.0-31.0); MCHC 31.1 g/dL (32.0-36.0); MCV 93.7 fL (78.0-100.0); MPV 10.1 fL (6.0-9.5); RBC 3.47 M/uL (4.70-6.00); RDW 18.6 % (11.5-14.0)
[2017-01-14 05:45] LABS: WBC 5.8 K/uL (4.0-10.5)
[2017-01-14 06:01] LABS: CREATININE 0.3 mg/dL (0.7-1.2); POTASSIUM 4.1 mmol/L (3.5-5.1)
--- NOTE | 2017-01-14 18:53 | NUR ---
TRACH CARE PROVIDED, DEEP SUCTION, PT STATES THAT HE IS HAVING MORE DIFFICULTY COUGHING UP SPUTUM HOWEVER SPUTUM PRODUCTION CONTINUES TO BE MODERATE FROM TRACH SITE
[2017-01-15 04:09] LABS: HCT 33.9 % (42.0-52.0); HGB 10.2 g/dl (13.2-18.0); MCH 28.4 pg (25.0-31.0); MCHC 30.1 g/dL (32.0-36.0); MCV 94.4 fL (78.0-100.0); MPV 9.4 fL (6.0-9.5); RBC 3.59 M/uL (4.70-6.00); RDW 18.6 % (11.5-14.0); WBC 5.7 K/uL (4.0-10.5)
[2017-01-15 04:17] LABS: INR 1.29 (0.9-1.2); PROTHROMBIN TIME 15.6 SECONDS (11.7-14.0)
[2017-01-15 04:27] LABS: ALBUMIN 2.6 g/dL (3.4-4.8); BILIRUBIN - TOTAL 0.8 mg/dL (0.1-1.0); CREATININE 0.4 mg/dL (0.7-1.2); GLOBULIN (CALCULATION) 2.8 g/dL (2.2-4.2); MAGNESIUM 1.65 mg/dL (1.40-2.10); POTASSIUM 3.8 mmol/L (3.5-5.1); TOTAL PROTEIN 5.4 g/dL (6.4-8.3)
[2017-01-17 04:16] LABS: CREATININE 0.4 mg/dL (0.7-1.2); POTASSIUM 4.1 mmol/L (3.5-5.1)
[2017-01-18 04:24] LABS: BASOPHIL 0.2 % (0-2); EOSINOPHIL 2.4 % (0-7); HCT 34.7 % (42.0-52.0); HGB 10.9 g/dl (13.2-18.0); LYMPHOCYTE 12.5 % (15-48); MCHC 31.4 g/dL (32.0-36.0); MCV 92.3 fL (78.0-100.0); MONOCYTE 9.8 % (0-12); MPV 9.9 fL (6.0-9.5); NEUTROPHIL 75.1 % (41-80); PLT 417 K/uL (150-400); RBC 3.76 M/uL (4.70-6.00); WBC 8.2 K/uL (4.0-10.5)
[2017-01-18 04:33] LABS: ALBUMIN 2.6 g/dL (3.4-4.8); BILIRUBIN - TOTAL 0.7 mg/dL (0.1-1.0); CREATININE 0.4 mg/dL (0.7-1.2); GLOBULIN (CALCULATION) 2.7 g/dL (2.2-4.2); MAGNESIUM 1.63 mg/dL (1.40-2.10); PHOSPHORUS 4.1 mg/dL (2.7-4.5); TOTAL PROTEIN 5.3 g/dL (6.4-8.3)
--- NOTE | 2017-01-18 13:24 | NUR ---
PT OFF THE FLOOR FOR PEG PLACEMENT PROCEDURE. VITALS STABLE AT TIME OF TRANSFER.
[2017-01-19 05:39] LABS: INR 1.25 (0.9-1.2); PROTHROMBIN TIME 15.3 SECONDS (11.7-14.0); PTT 43.7 SECONDS (23.2-31.4)
[2017-01-19 05:48] LABS: ALBUMIN 2.3 g/dL (3.4-4.8); BILIRUBIN - TOTAL 0.6 mg/dL (0.1-1.0); CREATININE 0.4 mg/dL (0.7-1.2); GLOBULIN (CALCULATION) 3.1 g/dL (2.2-4.2); MAGNESIUM 1.64 mg/dL (1.40-2.10); POTASSIUM 4.2 mmol/L (3.5-5.1); TOTAL PROTEIN 5.4 g/dL (6.4-8.3)
[2017-01-19 18:42] LABS: IRON 20 ug/dL (44-196); IRON % SATURATION 12 %SAT (20-50); TIBC (TOTAL IRON + UIBC) 173 U/L (228-428); UIBC 153 ug/dL (112-346)
[2017-01-21 04:51] LABS: BASOPHIL 0.2 % (0-2); HCT 35.6 % (42.0-52.0); HGB 10.9 g/dl (13.2-18.0); MCH 27.9 pg (25.0-31.0); MCHC 30.6 g/dL (32.0-36.0); MCV 91.3 fL (78.0-100.0); MONOCYTE 7.8 % (0-12); PLT 431 K/uL (150-400); WBC 9.9 K/uL (4.0-10.5)
[2017-01-21 05:10] LABS: ALBUMIN 2.8 g/dL (3.4-4.8); BILIRUBIN - TOTAL 0.9 mg/dL (0.1-1.0); CREATININE 0.4 mg/dL (0.7-1.2); GLOBULIN (CALCULATION) 2.8 g/dL (2.2-4.2); MAGNESIUM 1.78 mg/dL (1.40-2.10); POTASSIUM 4.2 mmol/L (3.5-5.1); TOTAL PROTEIN 5.6 g/dL (6.4-8.3)
[2017-01-21 05:20] LABS: FT4 (FREE T4) 1.03 ng/dL (0.93-1.70); TSH (THYROID STIM HORMONE) 5.07 uIU/mL (0.270-4.200)
[2017-01-21 05:27] LABS: FOLIC ACID (SERUM) 14.6 ng/mL (5.6-45.8)
[2017-01-22 05:00] LABS: BASOPHIL 0.4 % (0-2); EOSINOPHIL 1.2 % (0-7); HCT 34.7 % (42.0-52.0); HGB 10.7 g/dl (13.2-18.0); LYMPHOCYTE 14.2 % (15-48); MCH 28.4 pg (25.0-31.0); MCHC 30.8 g/dL (32.0-36.0); NEUTROPHIL 75.2 % (41-80); PLT 417 K/uL (150-400); RBC 3.77 M/uL (4.70-6.00); RDW 18.2 % (11.5-14.0); WBC 8.5 K/uL (4.0-10.5)
[2017-01-22 05:14] LABS: ALBUMIN 2.8 g/dL (3.4-4.8); BILIRUBIN - TOTAL 0.9 mg/dL (0.1-1.0); CREATININE 0.4 mg/dL (0.7-1.2); GLOBULIN (CALCULATION) 2.7 g/dL (2.2-4.2); POTASSIUM 4.4 mmol/L (3.5-5.1); TOTAL PROTEIN 5.5 g/dL (6.4-8.3)
--- NOTE | 2017-01-22 08:45 | NUR ---
DURING PHYSICIAN ROUNDS, DR DYLAN DIALLO NOTED YELLOW GOLD LIQUID STOOL DRAINING FROM AROUND TANYA INSERTION SITE. SOILED DRESSING REMOVED AND SPLIT 4X4 GAUZE PLACED AROUND TANYA DRAIN INSERTION SITE AND COVERED WITH 4X4 GAUZE AND SILK TAPE. BULB ON TANYA DRAIN WILL NOT REMAIN COMPRESSED, DR CLARK NOTIFIED
--- NOTE | 2017-01-22 11:30 | NUR ---
PATIENT REQUESTED TO GET UP TO BSC FOR A BOWEL MOVEMENT. PATIENT EVACUATED A SMALL AMOUNT OF BLUE/GREEN LIQUID STOOL FROM RECTUM.
[2017-01-23 04:04] LABS: HCT 34.9 % (42.0-52.0); HGB 10.7 g/dl (13.2-18.0); MCH 28.2 pg (25.0-31.0); MCHC 30.7 g/dL (32.0-36.0); MCV 91.8 fL (78.0-100.0); MPV 10.1 fL (6.0-9.5); RBC 3.8 M/uL (4.70-6.00); RDW 18.2 % (11.5-14.0); WBC 9.4 K/uL (4.0-10.5)
[2017-01-23 04:21] LABS: CREATININE 0.4 mg/dL (0.7-1.2); POTASSIUM 4.5 mmol/L (3.5-5.1)
[2017-01-24 16:58] LABS: CKMB 3.77 ng/mL (0.97-4.94); TROPONIN T 0.03 ng/mL
[2017-01-25 04:41] LABS: HCT 36.9 % (42.0-52.0); HGB 11.1 g/dl (13.2-18.0); MCH 28.2 pg (25.0-31.0); MCHC 30.1 g/dL (32.0-36.0); MCV 93.7 fL (78.0-100.0); MPV 10.8 fL (6.0-9.5); RBC 3.94 M/uL (4.70-6.00); RDW 18.6 % (11.5-14.0); WBC 7.3 K/uL (4.0-10.5)
[2017-01-25 04:52] LABS: CREATININE 0.4 mg/dL (0.7-1.2); POTASSIUM 4.9 mmol/L (3.5-5.1)
[2017-01-26 04:04] LABS: HCT 36.6 % (42.0-52.0); HGB 10.9 g/dl (13.2-18.0); MCH 27.8 pg (25.0-31.0); MCHC 29.8 g/dL (32.0-36.0); MCV 93.4 fL (78.0-100.0); MPV 10.4 fL (6.0-9.5); RBC 3.92 M/uL (4.70-6.00); RDW 18.7 % (11.5-14.0); WBC 10.3 K/uL (4.0-10.5)
[2017-01-26 04:19] LABS: CREATININE 0.4 mg/dL (0.7-1.2); POTASSIUM 4.6 mmol/L (3.5-5.1)
--- NOTE | 2017-01-26 11:31 | NUR ---
01/26/17 1030 PICC LINE PROCEDURE EXPALINED AND CONSENT SIGNED. BASICILIC VEIN VISUALIZED USING THE SITE RITE 6 ULTRA SOUND. UPPER ARM PREPPED AND CLEANSED, PT DRAPED IN STERILE FASHION. A 21GA NEEDLE WAS USED, UNABLE TO THREAD GUIDE WIRE. ATTEMPTED X2. ON THIRD ATTEMPT GUIDE WIRE THREADED EASILY. GOOD BLOOD RETURN NOTED. PT TOLERATED WELL. A 5FR DOUBLE LUMEN PICC WAS USED. TRIMMED AT 41CM. INSERTION 0CM. BICEP 29CM. 1107 PLACEMENT CONFIRMED IN SVC PER RADIOLOGIST. STYLET REMOVED WITHOUT DIFFICULTY. BOTH LUMENS FLUSHED AND ENDCAPS PLACED ON LUMENS. REPORT TO FERMIN CAMARA RN TCU. PT'S AT BED AT BEDSIDE.
[2017-01-28 07:30] LABS: BASOPHIL 0.3 % (0-2); EOSINOPHIL 1.4 % (0-7); HCT 29.6 % (42.0-52.0); LYMPHOCYTE 14.3 % (15-48); MCH 28.2 pg (25.0-31.0); MCHC 30.4 g/dL (32.0-36.0); MCV 92.8 fL (78.0-100.0); MONOCYTE 6.9 % (0-12); MPV 9.6 fL (6.0-9.5); NEUTROPHIL 77.1 % (41-80); PLT 338 K/uL (150-400); RBC 3.19 M/uL (4.70-6.00); RDW 17.6 % (11.5-14.0)
[2017-01-28 07:31] LABS: WBC 7.1 K/uL (4.0-10.5)
[2017-01-28 07:55] LABS: ALBUMIN 2.3 g/dL (3.4-4.8); BILIRUBIN - TOTAL 0.5 mg/dL (0.1-1.0); CREATININE 0.4 mg/dL (0.7-1.2); GLOBULIN (CALCULATION) 2.5 g/dL (2.2-4.2); MAGNESIUM 1.54 mg/dL (1.40-2.10); PHOSPHORUS 2.8 mg/dL (2.7-4.5); POTASSIUM 3.4 mmol/L (3.5-5.1); TOTAL PROTEIN 4.8 g/dL (6.4-8.3)
[2017-01-29 04:55] LABS: BUN <3.0 mg/dL (6-25); CHLORIDE 94 mmol/L (98-107); CREATININE 0.4 mg/dL (0.7-1.2); GLUCOSE 88 mg/dL (70-105); POTASSIUM 3.3 mmol/L (3.5-5.1)
[2017-01-30 05:30] LABS: ALBUMIN 2.7 g/dL (3.4-4.8); ALKALINE PHOSHATASE 72 U/L (59-141); ALT 22 U/L (2-40); AST 23 U/L (0-37); BILIRUBIN - TOTAL 0.5 mg/dL (0.1-1.0); BUN <3.0 mg/dL (6-25); CHLORIDE 93 mmol/L (98-107); CREATININE 0.4 mg/dL (0.7-1.2); GLOBULIN (CALCULATION) 2.4 g/dL (2.2-4.2); GLUCOSE 98 mg/dL (70-105); MAGNESIUM 1.56 mg/dL (1.40-2.10); PHOSPHORUS 2.6 mg/dL (2.7-4.5); POTASSIUM 3.5 mmol/L (3.5-5.1); TOTAL PROTEIN 5.1 g/dL (6.4-8.3)
[2017-01-30 05:35] LABS: FT4 (FREE T4) 1.1 ng/dL (0.93-1.70); TSH (THYROID STIM HORMONE) 7.44 uIU/mL (0.270-4.200)
[2017-01-31 04:47] LABS: HCT 32.8 % (42.0-52.0); HGB 10.2 g/dl (13.2-18.0); MCHC 31.1 g/dL (32.0-36.0); MCV 90.1 fL (78.0-100.0); MPV 10.1 fL (6.0-9.5); RBC 3.64 M/uL (4.70-6.00); RDW 18.2 % (11.5-14.0)
[2017-01-31 05:05] LABS: ALBUMIN 2.7 g/dL (3.4-4.8); BILIRUBIN - TOTAL 0.4 mg/dL (0.1-1.0); CREATININE 0.4 mg/dL (0.7-1.2); GLOBULIN (CALCULATION) 2.5 g/dL (2.2-4.2); MAGNESIUM 1.89 mg/dL (1.40-2.10); PHOSPHORUS 2.7 mg/dL (2.7-4.5); POTASSIUM 3.4 mmol/L (3.5-5.1); TOTAL PROTEIN 5.2 g/dL (6.4-8.3)
[2017-02-01] MEDS ORDERED: BACITRACIN15 GM TOP (10:31)
[2017-02-01] MEDS ORDERED: ROBITUSSIN100 MG/5 M GT (10:32)
[2017-02-01] MEDS ORDERED: ASPIRIN CHEWABL81 MG GT (10:34)
[2017-02-01] MEDS ORDERED: SYNTHROID75 MCG GT (10:34)
[2017-02-01] MEDS ORDERED: PREVACID30 M1 GT (10:37)
[2017-02-01] MEDS ORDERED: LOPRESSOR25 MG GT (10:37)
[2017-02-01] MEDS ORDERED: DIGITEK125 MCG GT (10:37)
[2017-02-01] MEDS ORDERED: REGLAN10 MG/10 M GT (10:38)
[2017-02-01] MEDS ORDERED: LIQUACEL LIQUID30 ML GT (10:39)
[2017-02-01] MEDS ORDERED: [UNRECOGNIZED DRUG - OTHER] GT (10:39)
== END 2017-02-01 11:25 | disposition home health service (06) | DRG 3 ==
LOC: FMS 10:15 → FTCU 13:42 → FICU 13:42 → FTCU 01-01 08:15 → FICU 01-09 14:49 → FTCU 01-11 14:00
PROVIDERS: Emergency Medicine; Internal Medicine; Internal Medicine Adolescent Medicine; Internal Medicine Cardiovascular Disease; Internal Medicine Nephrology; ADMIT Surgery
PROC: 0DJD4ZZ Inspection of Lower Intestinal Tract, Percutaneous Endoscopic Approach (ICD-10-PCS; 2016-11-23)
PROC: 0DTN0ZZ Resection of Sigmoid Colon, Open Approach (ICD-10-PCS; principal; 2016-11-23 10:15)
PROC: 5A1955Z Respiratory Ventilation, Greater than 96 Consecutive Hours (ICD-10-PCS; 2016-12-01)
PROC: 0W9G0ZX Drainage of Peritoneal Cavity, Open Approach, Diagnostic (ICD-10-PCS; 2016-12-01)
PROC: 02HV33Z Insertion of Infusion Device into Superior Vena Cava, Percutaneous Approach (ICD-10-PCS; 2016-12-01)
PROC: 30233N1 Transfusion of Nonautologous Red Blood Cells into Peripheral Vein, Percutaneous Approach (ICD-10-PCS; 2016-12-03)
PROC: 3E0436Z Introduction of Nutritional Substance into Central Vein, Percutaneous Approach (ICD-10-PCS; 2016-12-04)
PROC: 30233N1 Transfusion of Nonautologous Red Blood Cells into Peripheral Vein, Percutaneous Approach (ICD-10-PCS; 2016-12-04)
PROC: 30233N1 Transfusion of Nonautologous Red Blood Cells into Peripheral Vein, Percutaneous Approach (ICD-10-PCS; 2016-12-05)
PROC: 02HV33Z Insertion of Infusion Device into Superior Vena Cava, Percutaneous Approach (ICD-10-PCS; 2016-12-06)
PROC: 0W9F30Z Drainage of Abdominal Wall with Drainage Device, Percutaneous Approach (ICD-10-PCS; 2016-12-12)
PROC: 0W9F30Z Drainage of Abdominal Wall with Drainage Device, Percutaneous Approach (ICD-10-PCS; 2016-12-12)
PROC: 0B110F4 Bypass Trachea to Cutaneous with Tracheostomy Device, Open Approach (ICD-10-PCS; 2016-12-13)
PROC: 0D1B0Z4 Bypass Ileum to Cutaneous, Open Approach (ICD-10-PCS; 2016-12-15)
PROC: 0W9G00Z Drainage of Peritoneal Cavity with Drainage Device, Open Approach (ICD-10-PCS; 2016-12-15)
PROC: 0W993ZX Drainage of Right Pleural Cavity, Percutaneous Approach, Diagnostic (ICD-10-PCS; 2017-01-05)
PROC: 0BP1XFZ Removal of Tracheostomy Device from Trachea, External Approach (ICD-10-PCS; 2017-01-05)
PROC: 0B9F8ZX Drainage of Right Lower Lung Lobe, Via Natural or Artificial Opening Endoscopic, Diagnostic (ICD-10-PCS; 2017-01-09)
PROC: 0BC68ZZ Extirpation of Matter from Right Lower Lobe Bronchus, Via Natural or Artificial Opening Endoscopic (ICD-10-PCS; 2017-01-09)
PROC: 0W993ZX Drainage of Right Pleural Cavity, Percutaneous Approach, Diagnostic (ICD-10-PCS; 2017-01-15)
PROC: 0DH63UZ Insertion of Feeding Device into Stomach, Percutaneous Approach (ICD-10-PCS; 2017-01-18)
PROC: 0DB80ZZ Excision of Small Intestine, Open Approach (ICD-10-PCS; 2017-01-25)
PROC: 0DN80ZZ Release Small Intestine, Open Approach (ICD-10-PCS; 2017-01-25)
PROC: 0BCJ8ZZ Extirpation of Matter from Left Lower Lung Lobe, Via Natural or Artificial Opening Endoscopic (ICD-10-PCS; 2017-01-25)
PROC: 0BCF8ZZ Extirpation of Matter from Right Lower Lung Lobe, Via Natural or Artificial Opening Endoscopic (ICD-10-PCS; 2017-01-25)
PROC: 0W9G30Z Drainage of Peritoneal Cavity with Drainage Device, Percutaneous Approach (ICD-10-PCS; 2017-01-25)
PROC: 02HV33Z Insertion of Infusion Device into Superior Vena Cava, Percutaneous Approach (ICD-10-PCS; 2017-01-26)
DX: C18.7 Malignant neoplasm of sigmoid colon (principal); K65.1 Peritoneal abscess; R65.21 Severe sepsis with septic shock; A41.59 Other Gram-negative sepsis; J69.0 Pneumonitis due to inhalation of food and vomit; N17.9 Acute kidney failure, unspecified; E87.2 Acidosis; K63.2 Fistula of intestine; E87.3 Alkalosis; J96.01 Acute respiratory failure with hypoxia; J96.02 Acute respiratory failure with hypercapnia; J90 Pleural effusion, not elsewhere classified; E46 Unspecified protein-calorie malnutrition; J98.19 Other pulmonary collapse; K91.872 Postprocedural seroma of a digestive system organ or structure following a digestive system procedure; D62 Acute posthemorrhagic anemia; L89.313 Pressure ulcer of right buttock, stage 3; L89.323 Pressure ulcer of left buttock, stage 3; K66.0 Peritoneal adhesions (postprocedural) (postinfection); D64.9 Anemia, unspecified; I10 Essential (primary) hypertension; M19.90 Unspecified osteoarthritis, unspecified site; F17.210 Nicotine dependence, cigarettes, uncomplicated; K21.9 Gastro-esophageal reflux disease without esophagitis; E87.6 Hypokalemia; I48.0 Paroxysmal atrial fibrillation; B96.20 Unspecified Escherichia coli [E. coli] as the cause of diseases classified elsewhere; B96.89 Other specified bacterial agents as the cause of diseases classified elsewhere; Y95 Nosocomial condition; R13.10 Dysphagia, unspecified; Z85.038 Personal history of other malignant neoplasm of large intestine; Z90.49 Acquired absence of other specified parts of digestive tract; Z86.010 Personal history of colon polyps; Z79.82 Long term (current) use of aspirin; Z79.899 Other long term (current) drug therapy
CPT/HCPCS: 36415; 36430; 36600; 70450; 71010; 71020; 71250; 71275; 74000; 74230; 74250; 76770; 76942; 80048; 80053; 80076; 80162; 80202; 81001; 81003; 81099; 82140; 82550; 82553; 82570; 82607; 82746; 82803; 82962; 83540; 83550; 83605; 83735; 83874; 83880; 84100; 84134; 84145; 84300; 84439; 84443; 84478; 84484; 85014; 85018; 85025; 85044; 85379; 85384; 85610; 85730; 86403; 86703; 86706; 86803; 86850; 86900; 86901; 86922; 87040; 87045; 87046; 87070; 87075; 87077; 87088; 87184; 87186; 87205; 87324; 87340; 87449; 88309; 88341; 88342; 89051; 92507; 92526; 92611; 93005; 94002; 94010; 94640; 94667; 94668; 94760; 94762; 97110; 97116; 97162; 97163; 97166; 97167; 97530; 97530-GP; 97535; A6197; C1751; C9113; J0131; J0282; J0610; J0692; J0694; J0743; J1100; J1160; J1170; J1450; J1644; J1815; J1885; J1956; J2020; J2060; J2185; J2270; J2405; J2543; J2704; J2710; J2916; J2930; J3010; J3360; J3370; J3420; J3475; J3480; P9016; P9046; Q9967